=== PATIENT | female | born 1995 ===

== ENCOUNTER 2024-02-16 13:32 | Outpatient (RCR) | payer BC, SELFPAY ==
--- NOTE | 2024-02-16 14:30 | PTOPEVAL1 ---
Assessment and note entered by Eliot Peralta Evaluation Information Assessment Status Evaluation Diagnosis sprain of right ankle ICD-10 Condition Codes (PT) M25.571 Onset 01/21/24 Subjective Information Pt. reports she was riding a horse and fell off. During falling off her right ankle remained in the stirrup twisting the ankle. She reports that she got x-ray that same day at urgent care and no fracture. 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 She states that her job requires her to push carts weight up to 1300#. She states that she has improved since the initial injury. She has not undergone MRI. She reports that her footwear consist mostly of tennis shoes. She states that pain is most notable with standing and walking. She report she has little to no pain at rest. Pt. reports that her goal is to be able to return to walking normal and return to work duties. Reported Pain Level Pain Score 2: Self Report Assessment PT Clinical Summary Pt. is a 28 year old female who enters the clinic following a right ankle sprain. She presents with limited ROM, impaired strength, impaired gait and pain on this date. Continued skilled PT is indicated in order to improve these areas to allow the pt. to be able to return to all work related duties without limitation. Plan of Care Interventions Electrical Stimulation,Gait Training,Hot Pack/Cold Pack,Manual Therapy,Neuro Re-education,Patient/ Caregiver Educati,Therapeutic Activities, Therapeutic Exercise PT Services Indicated Yes Treatment Frequency and 2x/week x 8 visits Duration These treatments will address the objective and functional deficits as defined above. The patient will be advanced safely and appropriately in order for the patient to progress towards his/her prior level of function. Additional exercises will be introduced and as well as a comprehensive home exercise program upon discharge, if needed, ?to ensure carryover of functional gains achieved in the clinic. This treatment plan has been reviewed and agreement upon by the patient.
--- NOTE | 2024-02-16 14:30 | OPREHPOC ---
Outpatient Therapy Plan of Care This is a Multidisciplinary Plan of Care that may contain components documented by all disciplines (PT, OT, and ST.) PT Problem 1 PT Problem #1 Knowledge Deficit PT Goal 1 Goal / Goal Update Pt. will be independent with a HEP focusing on strength and mobility Target Visit 2 PT Problem 2 PT Problem #2 Impaired Balance PT Goal 1 Goal / Goal Update Pt. will be able to maintain right SLS without support for 1 minute Target Visit 8 PT Goal 1 Goal / Goal Update Pt. will demonstrate 15 degrees active right ankle dorsiflexion in order to navigate uneven terrain and ramps. Target Visit 8
--- NOTE | 2024-03-09 17:52 | PTOPREEVAL ---
Assessment and note entered by Christianne Hernandez DPT Evaluation Information Assessment Status Re-evaluation Diagnosis sprain of right ankle ICD-10 Condition Codes (PT) M25.571 Onset 01/21/24 Subjective Information Patient reports some days are better than others. she reports she is recovering well but later in the day she is experiencing more pain. she report running around with her son is difficult. she does reports she is having difficulty with stepping up and over the bathtub. she reports she has not tried to step up into her truck yet. she reports that walking has improved. she also reports she is now able to carry her son around better. she reports she is able to stand to cook now. Reported Pain Level Pain Score 0: Self Report Pain Score 0: Self Report Assessment PT Clinical Summary Mrs. Dawkins has attended 8 visits of skilled PT with good progression towards goals. She demonstrates improved R ankle ROM and stability with improved ability to ambulate and carry her son around. She continues to report difficulty with interacting with her son at prior level and stepping out of the tub. She would benefit from continued skilled PT to address remaining impairments and return to [facility]. Plan of Care Interventions Electrical Stimulation,Gait Training,Hot Pack/Cold Pack,Manual Therapy,Neuro Re-education,Patient/ Caregiver Educati,Therapeutic Activities, Therapeutic Exercise PT Services Indicated Yes Treatment Frequency and continue 2x weekly for 8 visits Duration These treatments will address the objective and functional deficits as defined above. The patient will be advanced safely and appropriately in order for the patient to progress towards his/her prior level of function. Additional exercises will be introduced and as well as a comprehensive home exercise program upon discharge, if needed, ?to ensure carryover of functional gains achieved in the clinic. This treatment plan has been reviewed and agreement upon by the patient.
--- NOTE | 2024-04-05 13:50 | PTOPDC ---
Assessment and note entered by Eliot Peralta Evaluation Information Assessment Status Discharge Diagnosis sprain of right ankle ICD-10 Condition Codes (PT) M25.571 Onset 01/21/24 Subjective Information Pt. reports that she has been at the barn with the horses more frequently. She reports that she has been on her feet for 2-3 hours at a time. She states that despite her increase in activity she continues to experience the numbness and tingling around the heel. She reports she is frustrated by the continued numbness and will talk with her doctor Friday regarding a possible MRI. Reported Pain Level Pain Score 4: Self Report Assessment PT Clinical Summary Pt. has met all goals established at the initial evaluation. Despite having met the goals she continues to describe numbness and tingling at the area of the right heel. At this time she has no objective deficits and deficits remain subjective in regards to pain. Pt. is encouraged to continue with her HEP and follow up with her doctor to determine if further imaging is necessary. Plan of Care PT Services Indicated No
== END 2024-04-05 14:04 | disposition home or self-care (01) ==
LOC: CHSPT 13:32
DX: S93.401D Sprain of unspecified ligament of right ankle, subsequent encounter (principal)
CPT/HCPCS: 97110; 97112; 97140; 97150; 97161; 97530